=== PATIENT | male | born 1970 | race Caucasian/White ===

== ENCOUNTER 2021-12-29 11:04 | Day surgery (SDC) | payer BC ==
[~2021-12-29] VITALS: Ht 177.8 cm; Wt 90.5 kg
== END 2021-12-29 13:39 | disposition home or self-care (01) ==
LOC: ORSCSDS 11:04
PROVIDERS: Surgery
PROC: 0DJD8ZZ Inspection of Lower Intestinal Tract, Via Natural or Artificial Opening Endoscopic (ICD-10-PCS; principal; 2021-12-29 13:00)
DX: Z12.11 Encounter for screening for malignant neoplasm of colon (principal); Z87.891 Personal history of nicotine dependence
CPT/HCPCS: J2704

== ENCOUNTER 2024-06-26 14:30 | Emergency (ER) | payer OTHER, BC ==
[~2024-06-26] VITALS: Ht 175.3 cm; Wt 93.0 kg
[2024-06-26 14:39] VITALS: BP 167/92
[2024-06-26] MEDS ORDERED: AMOCLA875 PO (15:38)
[2024-06-26] MEDS ORDERED: Tetanus,Diphtheria Toxd Ped/Pf 0.5 ML VIAL IM ONE (15:40)
[2024-06-26] MEDS ORDERED: Diphth,Pertuss(Acell),Tet Vac 0.5 ML VIAL IM ONE (16:05)
== END 2024-06-26 16:05 | disposition home or self-care (01) ==
LOC: ER 14:30
DX: S51.851A Open bite of right forearm, initial encounter (principal); W54.0XXA Bitten by dog, initial encounter
CPT/HCPCS: 90471; 90702; 90715; 99283-25